=== PATIENT | female | born 1965 | race African-American/Black ===

== ENCOUNTER 2023-09-25 11:36 | Outpatient (AMB) | payer OTHER, SELFPAY ==
--- NOTE | 2023-09-25 11:37 | MHC.OFFVIS ---
Intake Vital Signs 09/25/23 11:53 BP 122/80 Blood Pressure Location Rt brachial Position Sitting Pulse 80 Pulse Source Pulse Oximeter Pulse Oximetry (%) 98 Intake [facility] Allergies acetaminophen [From Tylenol] Allergy (Unknown, Verified 09/25/23 11:57) Unknown HPI [facility] HPI Details She is here for HIV care. She is here with her daughter Marianne who is an RN at [employer] and is her health care proxy. She was living in [place] and moved here two weeks ago She has depression,anxiety and some memory loss after hypoxia when she was hypoxic,ventilated. She was diagnosed 31 years ago with HIV in 1991. She has been on Tivicay and Descovy in past but has fallen off medication at this time and has not taken any for three years. She has asthma and had CVA. She doesnt smoke,use alcohol or use drugs. She has had some vaginal lesions in past and used Valtrex 1 g daily for prevention. She has some seborrheic skin on face. [facility] Medical History Cough HIV (human immunodeficiency virus infection) Review of Systems Const All systems reviewed & are unremarkable except as noted in HPI and below Physical Exam Vital Signs: Last Vital Signs Pulse 80 09/25/23 11:53 BP 122/80 09/25/23 11:53 Pulse Ox 98 09/25/23 11:53 Const General: cooperative HEENT Other: some facial seborrhea Face and sinus: Yes normal facial exam Mouth: Normal oral and palatal mucosa present Teeth and gingiva: dentition normal Eyes General: appearance normal, both eyes and all related structures Pupils: Equal, round and reactive pupils present Resp Effort & Inspection: normal respiratory effort Cardio Rate: regular rate Rhythm: regular rhythm GI Palpation (GI): Soft to palpation and nontender General: Yes no CVA tenderness Back/Spine/Pelvis Back: no CVA tenderness Skin General skin exam: no rashes or lesions noted Neuro General: moves all extremities Cranial nerves: Yes Equal, round and reactive pupils present Extrem General: Yes normal to inspection Psych Appearance: grossly normal Assessment & Plan Assessment & Plan (1) HIV (human immunodeficiency virus infection): Comment: She has not been on medication for some time. She has some seborrhea and has been on prophylactic medication for HSV Code(s): B20 - Human immunodeficiency virus [HIV] disease Plan: Check CD4 count and viral load. PJP prophylaxis if under 200. Ketoconazole cream for face. Valtrex 1 g po daily preventive HSV. Return in one months. Follow up PCP colonoscopy and [facility] mammogram and Pap. COVID,flu and pneumonia vaccine if not received. Orders: Orders Liver Panel 09/25/23 B20 - Human immunodeficiency virus [HIV] disease Hepatitis C Viral Load 09/25/23 B20 - Human immunodeficiency virus [HIV] disease Syphilis Screen 09/25/23 B20 - Human immunodeficiency virus [HIV] disease Hepatitis B Core Antibody 09/25/23 B20 - Human immunodeficiency virus [HIV] disease Hepatitis B Surface Antibody 09/25/23 B20 - Human immunodeficiency virus [HIV] disease Cryptococcal Ag Serum 09/25/23 B20 - Human immunodeficiency virus [HIV] disease XR chest 2V 09/25/23 R05.9 - Cough, unspecified Complete Blood Count Auto Diff 09/25/23 B20 - Human immunodeficiency virus [HIV] disease Basic Metabolic Panel 09/25/23 B20 - Human immunodeficiency virus [HIV] disease Hepatitis C Antibody 09/25/23 B20 - Human immunodeficiency virus [HIV] disease HIV-1 RNA QN PCR Expanded 09/25/23 B20 - Human immunodeficiency virus [HIV] disease Lymphocyte Subset Panel 3 09/25/23 B20 - Human immunodeficiency virus [HIV] disease T Spot TB 09/25/23 B20 - Human immunodeficiency virus [HIV] disease Hepatitis B Surface Antigen 09/25/23 B20 - Human immunodeficiency virus [HIV] disease Hepatitis A IgG 09/25/23 B20 - Human immunodeficiency virus [HIV] disease Legbjpj-1-Pzkoqfqir Dehydrogen 09/25/23 B20 - Human immunodeficiency virus [HIV] disease HIV Genotype 09/25/23 B20 - Human immunodeficiency virus [HIV] disease HIV-1 Integrase Genotype 09/25/23 B20 - Human immunodeficiency virus [HIV] disease Medications: New valacyclovir (Valtrex) 1,000 mg PO DAILY 90 tabs 11RF 90 days dolutegravir (Tivicay) 50 mg PO DAILY 90 tabs 1RF 90 days ketoconazole 2% 1 appl topical DAILY 30 grams 3RF emtricitabine-tenofovir alafen 200-25 mg (Descovy) 1 tab PO DAILY 90 tabs 1RF 90 days Coding Level of Care Code New Pt Level 4 (82163) Diagnoses HIV (human immunodeficiency virus infection) B20
[2023-09-25 11:53] VITALS: BP 122/80; PULSE 80; O2SAT 98
== END 2023-09-25 13:05 | disposition home or self-care (01) ==
LOC: HO.HID 11:36
PROVIDERS: PCP Internal Medicine; Visit Provider Internal Medicine
DX: B20 Human immunodeficiency virus [HIV] disease (principal)
CPT/HCPCS: 99204

== ENCOUNTER 2023-09-25 11:36 | Outpatient (REF) | payer OTHER, SELFPAY ==
--- NOTE | ~2023-09-25 | XR_ITS ---
EXAMINATION: XR CHEST CLINICAL INFORMATION: Unspecified cough COMPARISON: None available. TECHNIQUE: 2 views of the chest were obtained. FINDINGS: Lung volumes are low. There is no gross pneumothorax. Heart size within normal limits. Asymmetric elevation of the left lung base with prominent air-filled subjacent loops of bowel. No pleural effusion. Mild degenerative changes in the thoracic spine. Dextroscoliosis of the thoracolumbar spine. Mild bibasilar linear streaky opacities may represent subsegmental atelectasis/scar versus inflammatory/infectious process. XR/XR chest 2V IMPRESSION: 1. Mild bibasilar linear streaky opacities may represent subsegmental atelectasis/scar versus inflammatory/infectious process. Recommend follow-up imaging in 4-6 weeks to confirm resolution and exclude underlying pathology. 2. Asymmetric elevation of the left lung base with prominent air-filled subjacent loops of bowel.
[2023-09-25 13:28] LABS: Basophils Percent Auto 0.4 % (0-2); Eosinophils Absolute Auto 0.1 X10*3/uL (0.0-0.4); Imm Gran Abs Auto 0.01 X10*3/uL (0.00-0.03); Imm Gran Pct Auto 0.2 % (0.0-0.4); Lymphocytes Absolute Auto 2.5 X10*3/uL (1.2-4.9); Monocytes Absolute Auto 0.4 X10*3/uL (0.1-1.2); Neutrophils Absolute Auto 2.7 x10*3/uL (2.0-8.3)
[2023-09-25 13:29] LABS: White Blood Count 5.6 X10*3/uL (4.8-10.8)
[2023-09-25 14:00] LABS: Eosinophils Percent Auto 1.2 % (0-4); Hematocrit 39.4 % (37.0-47.0); Hemoglobin 13.5 g/dl (12.0-16.0); Lymphocytes Percent Auto 44.3 % (20-40); Mean Corpuscular HGB Conc 34.3 g/dl (31.0-35.0); Mean Corpuscular Hemoglobin 31.5 pg (27.0-33.0); Mean Corpuscular Volume 92.1 fL (80.0-98.0); Monocytes Percent Auto 6.4 % (2-11); Neutrophils Percent Auto 47.5 % (45-73); Platelet Count 311 X10*3/uL (160-400); Red Blood Count 4.28 X10*6/uL (4.20-5.50); Red Cell Distribution Width 13.5 % (11.0-16.0)
[2023-09-28 10:43] LABS: Absolute CD3 Count 1457 cells/uL (840-3060); Absolute CD4 Count 353 cells/uL (490-1740); Absolute CD8 Count 1123 cells/uL (180-1170); Absolute Lymphocytes 2056 cells/uL (850-3900); CD4 CD8 Ratio 0.31 (0.86-5.00); Percent CD3 Cells 71 % (57-85); Percent CD4 Cells 17 % (30-61); Percent CD8 Cells 55 % (12-42)
[2023-09-29 14:44] LABS: HCV Log PCR <1.18 NOT DETECTED Log IU/mL (NOT DETECTED); HepC Viral Load <15 NOT DETECTED IU/mL (NOT DETECTED)
[2023-09-30 18:49] LABS: HIV RNA PCR Qn Copies <20 Copies/mL; HIV RNA PCR Qn Log Copies <1.30 Log cps/mL
== END 2023-09-25 11:37 | disposition home or self-care (01) ==
LOC: HO.LAB 11:36
PROVIDERS: PCP Internal Medicine; Visit Provider Internal Medicine
DX: B20 Human immunodeficiency virus [HIV] disease (principal); R05.9 Cough, unspecified
CPT/HCPCS: 36415; 71046; 80048; 80076; 82955; 85025; 86359; 86360; 86403; 86481; 86704; 86706; 86708; 86780; 86803; 87340; 87522; 87536; 87900; 87901; 99202

== ENCOUNTER 2023-10-28 14:35 | Outpatient (AMB) | payer OTHER, SELFPAY ==
--- NOTE | 2023-10-28 15:03 | A.OFFVIS_ITS ---
Intake Vital Signs 10/28/23 15:16 BP 110/80 Blood Pressure Location Lt brachial Position Sitting Pulse 98 Pulse Source Pulse Oximeter Pulse Oximetry (%) 98 Oxygen Delivery Method Room Air Intake Visit Reasons: follow up,lab Allergies acetaminophen [From Tylenol] Allergy (Unknown, Verified 10/28/23 15:16) Unknown HPI follow up,lab HPI Details She has CD4 count 353 and undetectable October 07. She feels well COUNT INCLUDES THE [facility] Medical History Cough HIV (human immunodeficiency virus infection) Review of Systems Const All systems reviewed & are unremarkable except as noted in HPI and below Physical Exam Vital Signs: Last Vital Signs Pulse 98 10/28/23 15:16 BP 110/80 10/28/23 15:16 Pulse Ox 98 10/28/23 15:16 Oxygen Delivery Method Room Air 10/28/23 15:16 Const General: cooperative Orientation/consciousness: patient oriented x3 HEENT Head: Yes normal to inspection Mouth: Normal oral and palatal mucosa present Eyes General: appearance normal, both eyes and all related structures Pupils: Equal, round and reactive pupils present Resp Effort & Inspection: normal respiratory effort Cardio Rate: regular rate Rhythm: regular rhythm GI Palpation (GI): Soft to palpation and nontender General: Yes no CVA tenderness Back/Spine/Pelvis Back: no CVA tenderness Skin General skin exam: no rashes or lesions noted Neuro General: patient oriented x3 Cranial nerves: Yes CN's II-XII intact bilaterally and Yes Equal, round and reactive pupils present Extrem General: Yes normal to inspection Psych Appearance: grossly normal Assessment & Plan Assessment & Plan (1) HIV (human immunodeficiency virus infection): Comment: Her skin looks free from seborrhea. She has excellent suppression with viral load undetectable and CD4 count good. Code(s): B20 - Human immunodeficiency virus [HIV] disease Plan: Continue Tivicay and Truvada See in six months and labs put in for CD4 count and viral load then. Orders: Orders Lymphocyte Subset Panel 3 5 Months B20 - Human immunodeficiency virus [HIV] disease HIV-1 RNA QN PCR Expanded 5 Months B20 - Human immunodeficiency virus [HIV] disease Coding Level of Care Code Est Pt Level 3 (52102) Diagnoses HIV (human immunodeficiency virus infection) B20
[2023-10-28 15:16] VITALS: BP 110/80; PULSE 98; O2SAT 98
== END 2023-10-28 15:30 | disposition home or self-care (01) ==
LOC: HO.HID 14:35
PROVIDERS: PCP Internal Medicine; Visit Provider Internal Medicine
DX: B20 Human immunodeficiency virus [HIV] disease (principal)
CPT/HCPCS: 99213

== ENCOUNTER → 2023-10-28 14:35 | Outpatient (BNVA) | payer OTHER, SELFPAY | PROVIDERS: PCP Internal Medicine; Visit Provider Internal Medicine | DX: B20 Human immunodeficiency virus [HIV] disease (principal) | CPT/HCPCS: 99212 ==

== ENCOUNTER 2024-04-30 13:55 | Outpatient (REF) | payer OTHER, SELFPAY ==
[2024-05-04 06:34] LABS: HIV RNA PCR Qn Copies 17300 copies/mL (NOT DETECTED); HIV RNA PCR Qn Log Copies 4.24 (NOT DETECTED)
[2024-05-04 21:43] LABS: Absolute CD3 Count 1263 cells/uL (840-3060); Absolute CD4 Count 303 cells/uL (490-1740); Absolute CD8 Count 921 cells/uL (180-1170); Absolute Lymphocytes 1831 cells/uL (850-3900); CD4 CD8 Ratio 0.33 (0.86-5.00); Percent CD3 Cells 69 % (57-85); Percent CD4 Cells 17 % (30-61); Percent CD8 Cells 50 % (12-42)
== END 2024-04-30 13:56 | disposition home or self-care (01) ==
LOC: HO.HMGCLDS 13:55
PROVIDERS: Visit Provider Internal Medicine
DX: B20 Human immunodeficiency virus [HIV] disease (principal)
CPT/HCPCS: 36415; 86359; 86360; 87536

== ENCOUNTER 2024-06-29 14:02 | Outpatient (AMB) | payer OTHER, SELFPAY ==
[2024-06-29 15:30] VITALS: PULSE 101; TEMP 37.3; O2SAT 95
--- NOTE | 2024-06-29 15:30 | MHC.OFFVIS ---
Vital Signs 06/29/24 15:30 Pulse 101 H Pulse Source Pulse Oximeter Temp 99.2 F Temp Source Oral Pulse Oximetry (%) 95 Intake Visit Reasons: hiv lab follow up Allergies acetaminophen [From Tylenol] Allergy (Unknown, Verified 06/29/24 15:31) Unknown HPI HPI hiv lab follow up: Details: She comes in with her daughters boyfrienkofi, Perry. She had labs done shows viral load of 17,300 and viral load of 303 on April 30. Last time Ellen was picked up was September 2023. They want to get care in [place] at [facility]. She has significant weakness and is in wheelchair. [facility] Medical History Cough HIV (human immunodeficiency virus infection) Review of Systems Const All systems reviewed & are unremarkable except as noted in HPI and below Physical Exam Vital Signs: Last Vital Signs Temp 99.2 F 06/29/24 15:30 Pulse 101 H 06/29/24 15:30 Pulse Ox 95 06/29/24 15:30 Const General: cooperative Orientation/consciousness: patient oriented x3 HEENT Head: Yes normal to inspection Mouth: Normal oral and palatal mucosa present Eyes General: appearance normal, both eyes and all related structures Pupils: Equal, round and reactive pupils present Resp Effort & Inspection: normal respiratory effort Cardio Rate: regular rate Rhythm: regular rhythm GI Palpation (GI): Soft to palpation and nontender General: Yes no CVA tenderness Back/Spine/Pelvis Back: no CVA tenderness Skin General skin exam: no rashes or lesions noted Neuro General: patient oriented x3 Cranial nerves: Yes CN's II-XII intact bilaterally and Yes Equal, round and reactive pupils present Extrem General: Yes normal to inspection Psych Appearance: grossly normal Assessment & Plan Assessment & Plan (1) HIV (human immunodeficiency virus infection): Comment: Her skin looks free from seborrhea. She has excellent suppression with viral load undetectable and CD4 count good. Code(s): B20 - Human immunodeficiency virus [HIV] disease Category: Medical Plan She has not been taking her meds regularly. She needs support such as [facility] with case management. Daughter reports through boyfriend they would get care at [facility]. I did give one month Biktarvy hopefully better adherence than two pill a day she had been used to. No further appointments here. Medications: New bszeuptoa-uunbpkzv-jhspsrj ala 50-200-25 mg 1 tab PO DAILY 30 days 30 tabs 2RF xlefdzykd-sgoagzhg-plggilb ala 50-200-25 mg (Biktarvy) 1 tab PO DAILY 30 days 30 tabs 2RF Discontinued dolutegravir Discontinued Reason: Doctor's Order 50 mg PO DAILY 90 days 90 tabs 1RF emtricitabine-tenofovir alafen 200-25 mg Discontinued Reason: Doctor's Order 1 tab PO DAILY 90 days 90 tabs 1RF Coding Level of Care Code Est Pt Level 3 (67063) Diagnoses HIV (human immunodeficiency virus infection) B20
== END 2024-06-29 14:32 | disposition home or self-care (01) ==
LOC: HO.HID 14:02
PROVIDERS: PCP Internal Medicine; Visit Provider Internal Medicine
DX: B20 Human immunodeficiency virus [HIV] disease (principal)
CPT/HCPCS: 99213

== ENCOUNTER → 2024-06-29 14:02 | Outpatient (BNVA) | payer OTHER, SELFPAY | PROVIDERS: PCP Internal Medicine; Visit Provider Internal Medicine | DX: B20 Human immunodeficiency virus [HIV] disease (principal); Z91.148 Patient's other noncompliance with medication regimen for other reason | CPT/HCPCS: 99212 ==

== ENCOUNTER 2024-09-10 07:39 | Outpatient (REF) | payer OTHER, SELFPAY ==
[2024-09-13 02:39] LABS: HIV RNA PCR Qn Copies 93 copies/mL (NOT DETECTED); HIV RNA PCR Qn Log Copies 1.97 (NOT DETECTED)
[2024-09-14 13:43] LABS: Absolute CD3 Count 1011 cells/uL (840-3060); Absolute CD4 Count 271 cells/uL (490-1740); Absolute CD8 Count 737 cells/uL (180-1170); Absolute Lymphocytes 1441 cells/uL (850-3900); CD4 CD8 Ratio 0.37 (0.86-5.00); Percent CD3 Cells 70 % (57-85); Percent CD4 Cells 19 % (30-61); Percent CD8 Cells 51 % (12-42)
== END 2024-09-10 07:40 | disposition home or self-care (01) ==
LOC: HO.LAB 07:39
PROVIDERS: PCP Internal Medicine; Visit Provider Internal Medicine
DX: B20 Human immunodeficiency virus [HIV] disease (principal)
CPT/HCPCS: 36415; 86359; 86360; 87536

== ENCOUNTER 2024-10-03 15:33 | Outpatient (AMB) | payer OTHER, SELFPAY ==
--- NOTE | 2024-10-03 15:53 | MHC.OFFVIS ---
Intake Visit Reasons: HIV follow up Allergies acetaminophen [From Tylenol] Allergy (Unknown, Verified 06/29/24 15:31) Unknown HPI Comments Details: She is here with her daughter and granddaughter. She has no complaints. She now has viral load only 93 and CD4 count of 271 on Biktarvy. [facility] Medical History Cough HIV (human immunodeficiency virus infection) Review of Systems Const All systems reviewed & are unremarkable except as noted in HPI and below Physical Exam Const General: cooperative Orientation/consciousness: patient oriented x3 HEENT Head: Yes normal to inspection Mouth: Normal oral and palatal mucosa present Eyes General: appearance normal, both eyes and all related structures Pupils: Equal, round and reactive pupils present Resp Effort & Inspection: normal respiratory effort Cardio Rate: regular rate Rhythm: regular rhythm GI Palpation (GI): Soft to palpation and nontender General: Yes no CVA tenderness Back/Spine/Pelvis Back: no CVA tenderness Skin General skin exam: no rashes or lesions noted Neuro General: patient oriented x3 Cranial nerves: Yes CN's II-XII intact bilaterally and Yes Equal, round and reactive pupils present Extrem General: Yes normal to inspection Psych Appearance: grossly normal Assessment & Plan Assessment & Plan (1) HIV (human immunodeficiency virus infection): Comment: Her skin looks free from seborrhea. She has excellent suppression with viral load undetectable and CD4 count good. Code(s): B20 - Human immunodeficiency virus [HIV] disease Category: Medical Plan: Continue Biktarvy. See in six months with labs before. Orders: Orders HIV-1 RNA QN PCR Expanded 5 Months B20 - Human immunodeficiency virus [HIV] disease Lymphocyte Subset Panel 3 5 Months B20 - Human immunodeficiency virus [HIV] disease Syphilis Screen 5 Months B20 - Human immunodeficiency virus [HIV] disease Medications: Refilled nuvvhfxdm-atjyvsfk-dsxqemr ala 50-200-25 mg (Biktarvy) 1 tab PO DAILY 30 tabs 5RF 30 days ketoconazole 2% 1 appl topical DAILY 30 grams 5RF valacyclovir (Valtrex) 1,000 mg PO DAILY 90 tabs 3RF 90 days Coding Level of Care Code Est Pt Level 4 (64119) Diagnoses HIV (human immunodeficiency virus infection) B20
== END 2024-10-03 16:29 | disposition home or self-care (01) ==
PROVIDERS: PCP Internal Medicine; Visit Provider Internal Medicine
DX: B20 Human immunodeficiency virus [HIV] disease (principal)
CPT/HCPCS: 99214

== ENCOUNTER → 2024-10-03 15:33 | Outpatient (BNVA) | payer OTHER, SELFPAY | PROVIDERS: PCP Internal Medicine; Visit Provider Internal Medicine | DX: B20 Human immunodeficiency virus [HIV] disease (principal) | CPT/HCPCS: 99212 ==

== ENCOUNTER 2025-03-29 14:10 | Outpatient (REF) | payer OTHER, SELFPAY ==
--- OUTSIDE RECORDS SUMMARY | 2025-03-29 14:49 | XMS_ITS | Clinical Summary ---
Author Organization [facility] Address [address] [place] [address] Phone Care Team Providers Care Hog Ringer Name Role Phone Juan Knox MD Primary Care Provider [phone] Allergies Active Allergy Reactions Criticality Noted Date Comments Amoxicillin Anaphylaxis High 10/21/2024 Aspirin Anaphylaxis High 10/21/2024 Codeine Anaphylaxis High 10/21/2024 Penicillanic Sulfone Bl Beta-Lactamase Inhibitors Anaphylaxis High 10/21/2024 Tylenol Allergy Cmp Mult-Sx Nt 09/22/2023 Tylenol Allergy Complete Medications fluticasone propion-salmete roL (ADVAIR HFA) 230-21 mcg/actuation inhaler Inhale 2 Puffs into the lungs 2 times daily. 4 04/21/20 25 Active albuterol HFA (PROAIR HFA ; PROVENTIL HFA ; VENTOLIN HFA) 90 mcg/actuation inhaler Inhale 2 Puffs into the lungs every 6 hours as needed for Cough or Wheezing. 4 04/21/20 25 Active tiotropium (SPIRIVA) 18 mcg per inhalation capsule Inhale 1 Capsule into the lungs daily. Inhale the contents of one capsule through the Spiriva device every AM 4 04/21/20 25 Active albuterol 2.5 mg /3 mL (0.083 %) nebulizer solution Take 1 Vial by nebulization every 6 hours as needed for Wheezing, Shortness of Breath or Cough. 4 04/21/20 25 Active valACYclovir (VALTREX) 1 gram tablet Take 1 Tablet by mouth daily. 4 Active arginine/glutam ine/calcium bmb (RANDY ORAL) NUTRITIONAL SUPPLEMENTS (RANDY NUTRIVIGOR) POWD PACK: Take 1 Packet by mouth daily. - Oral 4 Active ketoconazole (NIZORAL) 2 % cream Apply topically 2 times daily. Active senna (SENOKOT) 8.6 mg tablet Take 1 Tablet by mouth daily as needed (Constipation) for up to 30 days. 4 Active polyethylene glycol (Miralax) 17 gram/dose oral powder Take 17 g by mouth daily for 30 days. 4 Active nutritional drink (Ensure High Protein) liquid Take 1 Can by mouth 2 times daily for 30 days. 4 Active foam bandage (Optifoam) 4 X 4 bandage 1 Each by Does not apply route every other day. 4 Active foam bandage (Optifoam) 6 X 6 bandage 1 Patch by Does not apply route 3 times daily. Active atorvastatin (LIPITOR) 20 mg tablet TAKE 1 TABLET BY MOUTH EVERY DAY 90 tablet 3 4 Active Biktarvy 50-200-25 mg per tablet Take 1 tablet by mouth 1 (one) time each day. 4 Active Active Problems Problem Noted Date Diagnosed Date HIV (human immunodeficiency virus infection) ([facility] V24, [facility] V28) 02/23/2024 History of cerebrovascular a ccident (CVA) with residual deficit 02/23/2024 Overview (06/20/2024): poor memory COPD (chronic obstructive pu lmonary disease) ([facility] V24, [facility] V28) 02/23/2024 Prediabetes 02/23/2024 Encounters Date Type Department Care Team Description 02/03/2025 11:00 AM EDT Office Visit Internal Medicine - [address] [place] [address] Juan Knox MD Adult general medical examination (Primary Dx); Asymptomatic HIV infection, with no history of HIV-related illness ([facility] V24, [facility] V28); Other emphysema ([facility] V24, [facility] V28); Post menopausal syndrome; Memory loss; Conductive hearing loss, bilateral from Last 3 Months Surgical History Surgery Date Site/Laterality Comments ABDOMINAL SURGERY PROCEDURE: HISTORICAL ABDOMINAL SURGERY; COMMENT: abscessed wound -2006 Medical History Medical History Date Comments HIV (human immunodeficiency virus infection) ([facility] V24, [facility] V28) DX:HIV (human im munodeficiency virus infection) ([facility]) History of crack cocaine use DX: History of crack cocaine use; COMMENT: quit February 2023 COPD (chronic obstructive pu lmonary disease) ([facility] V24, [facility] V28) DX:COPD (chronic o bstructive pulmonary disease) ([facility]) Prediabetes DX:Prediabetes History of cerebrovascular a ccident (CVA) with residual deficit DX:History of cerebrovascu lar accident (CVA) with residual deficit; COMMENT: poor memory Family History Relation Name Status Comments Father Mother Social History Tobacco Use Types Packs/Day Years Used Date Smoking Tobacco: Former Cigarettes 3 42 1 982 - 4 Smokeless Tobacco: Never Tobacco Cessation:Counseling Given: Not Answered Alcohol Use Standard Drinks/Week Comments Yes 0 (1 standard drink = 0.6 oz pur e alcohol) Comments Unknown Sex and Gender Information Value Date Recorded Sex Assigned at Female 10/04/2024 3:45 PM EST Legal Sex Female 8:13 PM EST Gender Identity Female 10/04/2024 3:45 PM EST Sexual Orientation Straight 10/04/2024 3: 45 PM EST Obstetrics History Last Filed Vital Signs Vital Sign Reading Time Taken Comments Blood Pressure 128/88 02/03/2025 11:05 AM EDT Pulse 87 02/03/2025 11:05 AM EDT Temperature 35.8 C (96.5 F) 02/03/2025 11:05 AM EDT Respiratory Rate 19 10/21/2024 8:18 AM EST Oxygen Saturation 96% 02/03/2025 11:05 AM EDT Inhaled Oxygen Concentration - - Weight 82.8 kg (182 lb 9.6 oz) 02/03/2025 11:05 AM EDT Height 162.6 cm (5' 4 ) 02/03/2025 11:05 AM EDT Body Mass Index 31.34 02/03/2025 11:05 AM EDT Plan of Treatment Upcoming Encounters Date Type Department Care Team (Late st Contact Info) Description 04/28/2025 9:30 AM EDT Appointment [facility] Density [address] [place] [phone] 04/28/2025 10:15 AM EDT Appointment [facility] [address] [place] [phone] 05/05/2025 2:15 PM EDT Office Visit Pulmonolgy - [place] [facility] [address] [place] [phone] Liz Last MD [address] [address] Health Maintenance Due Date Last Done Comments Breast Cancer Screening 1967 Meningococcal ACWY Vaccine ( 1 - Risk 2-dose series) 1969 COVID-19 Vaccine (#1) 1972 MMR Vaccines (1 of 2 - Risk 2-dose series) 1985 DTaP,Tdap,and Td Vaccines (1 - Tdap) 1986 Hepatitis A Vaccines (1 of 2 - Risk 2-dose series) 1986 Hepatitis B Vaccines (1 of 3 - 19+ 3-dose series) 1986 Pneumococcal Vaccine: 50+ Years (1 of 2 - PCV) 1986 Zoster Vaccines (1 of 2) 1986 Cervical Cancer Screening: P ap Smear 1988 Colorectal Cancer Screening: Colonoscopy 02/19/2024 Social Influencers of Health Screening 02/19/2024 Depression Screening 09/22/2024 09/22/2023 Influenza Vaccine (#1) 2025 Lung Cancer Screening (Low Dose CT) 10/04/2025 10/04/2024 Cholesterol Screening (Lipid Panel) 09/09/2029 09/09/2024, 02/26/2024, 02/26/2024 Hepatitis C Screening Completed 09/09/2024 HIB Vaccines Aged Out No longer eligi ble based on patient's age to complete this topic HPV Vaccines Aged Out No longer eligi ble based on patient's age to complete this topic IPV Vaccines Aged Out No longer eligi ble based on patient's age to complete this topic Meningococcal B Vaccine Aged Out No l onger eligible based on patient's age to complete this topic RSV Immunization Patients Under 20 months Aged Out No longer eligible b ased on patient's age to complete this topic Varicella Vaccines Aged Out No longer eligible based on patient's age to complete this topic Procedures Procedure Name Priority Date/Time Associated Diagnosis Comments CT LUNG SCREENING Routine 10/04/2024 3:5 2 PM EST Encounter for screening for lung cancer History of tobacco use HEPATITIS C ANTIBODY Routine 09/09/2024 8:55 AM EST HIV infection, unspecified symptom status (CMS/HCC V24, CMS/HCC V28) Prediabetes History of cerebrovascular accident (CVA) with residual deficit COPD (chronic obstructive pulmonary disease) (CMS/HCC V24, CMS/HCC V28) LIPID PANEL WITH REFLEX TO DIRECT LDL Routine 09/09/2024 8:55 AM EST Mixed hyperlipidemia HM DEPRESSION SCREENING Routine 09/22/2023 from Last 3 Months or Most Recently Relevant to Health Maintenance Results * CT Lung Screening (10/04/2024 3:52 PM EST) Anatomical Region Laterality Modality Chest Computed Tomogra phy 10/12/2024 12:5 8 PM EST Impressions 10/12/2024 1:05 PM EST Impression: No suspicious pulmonary nodule. Lung-RADS Category: Lung-RADS 1: No nodules or definitely benign nodules. Continue annual screening with Low Dose Chest CT in 12 months. Telerad JOHNNIE ([id number]) -------- FINAL REPORT -------- Dictated By: Mae Fields Dictated Date: 10/12/2024 12:58 ET Assigned Physician: Mae Fields Reviewed and Electronically Signed By: Mae Fields Signed Date: 10/12/2024 13:05 ET Workstation ID: [id number] Transcribed By: Self Edit Transcribed Date: 10/12/2024 12:58 ET Narrative 10/12/2024 1:05 PM EST History: 58 year-old 126 pack-year former smoker, asymptomatic, for lung cancer screening. Quit smoking one year ago. Comparison: No comparison imaging at this institution. Technique: Helical volumetric imaging of the thorax was performed, using low- dose technique, without IV contrast. DLP: 141.71 mGy/cm CTDIvol: 4.83 mGy [employer] VCT Iterative reconstruction technique Findings: Lungs and Airways: The trachea and central bronchial tree are patent. There are geographic areas of differential lung attenuation in both lower lobes, possibly air trapping. Minimal centrilobular and paraseptal emphysema is noted. Thin curvilinear opacity in the inferior lingula is consistent with subsegmental atelectasis. There is no suspicious pulmonary nodule. Pleura: No pleural or pericardial effusions are seen. Base of neck, mediastinum and heart: Mild multichamber cardiomegaly is noted. The included portions of the thyroid gland show no suspicious nodule. No thoracic lymphadenopathy is seen. Soft tissues: The overlying soft tissues are unremarkable. Abdomen: This study was performed without contrast and with lower than standard dose. These factors reduce the sensitivity for detection of small lesions in the upper abdomen. No significant abnormality is seen. Procedure Note Mae Fields MD - 10/12/2024 History: 58 year-old 126 pack-year former smoker, asymptomatic, for lungcancer screening. Quit smoking one year ago. Comparison: No comparison imaging at this institution. Technique: Helical volumetric imaging of the thorax was performed, usinglow-dose technique, without IV contrast. DLP: 141.71 mGy/cm CTDIvol: 4.83 mGy [employer]ed VCT Iterative reconstruction technique Findings: Lungs and Airways: The trachea and central bronchial tree are patent.There are geographic areas of differential lung attenuation in both lowerlobes, possibly air trapping. Minimal centrilobular and paraseptalemphysema is noted. Thin curvilinear opacity in the inferior lingula isconsistent with subsegmental atelectasis. There is no suspicious pulmonary nodule. Pleura: No pleural or pericardial effusions are seen. Base of neck, mediastinum and heart: Mild multichamber cardiomegaly isnoted. The included portions of the thyroid gland show no suspiciousnodule. No thoracic lymphadenopathy is seen. Soft tissues: The overlying soft tissues are unremarkable. Abdomen: This study was performed without contrast and with lower thanstandard dose. These factors reduce the sensitivity for detection of smalllesions in the upper abdomen. No significant abnormality is seen. IMPRESSION: Impression: No suspicious pulmonary nodule. Lung-RADS Category: Lung-RADS 1: No nodules or definitely benign nodules.Continue annual screening with Low Dose Chest CT in 12 months. Telerad PA ([id number]) -------- FINAL REPORT -------- Dictated By: Mae Fields Dictated Date: 10/12/2024 12:58 ET Assigned Physician: Mae Fields Reviewed and Electronically Signed By: Mae Fields Signed Date: 10/12/2024 13:05 ET Workstation ID: [id number] Transcribed By: Self Edit Transcribed Date: 10/12/2024 12:58 ET Shu Hernandez MD IMG CT PROCEDURES Final Result * Hepatitis C antibody (09/09/2024 8:55 AM EST) [facility] Hepatitis C Antibody Negative Negative LAB CHEMISTRY METHOD 09/09/2024 11:28 AM EST [facility] Blood Venous blood specimen / Unknown Venipuncture / Unknown 09/09/2024 8:55 AM EST 09/09/2024 8:55 AM EST Aimee Haskins MD LAB BLOOD ORDERABLES Final Resul t [facility] [address] [place] [address], [place] [phone] * (ABNORMAL) Lipid panel with reflex to direct LDL (09/09/2024 8:55 AM EST) Pathologist [facility] Cholesterol 170 0 - 200 mg/dL LAB CHEMISTRY METHOD 09/09/2024 10:43 AM EST [facility] Triglycerides 105 0 - 150 mg/dL LAB CHEMISTRY METHOD 09/09/2024 10:43 AM EST [facility] HDL 45 >=40 mg/dL LAB CHEMISTRY METHOD 09/09/2024 10:43 AM [facility] LDL Calculated 104(H) 0 - 100 mg/dL LAB CHEMISTRY METHOD 09/09/2024 10:43 AM [facility] VLDL Cholesterol Perry 21 mg/dL LAB CHEMISTRY METHOD 09/09/2024 10:43 AM EST [facility] Non HDL Chol. (LDL+VLDL) 125 <145 mg/dL LAB CHEMISTRY METHOD 09/09/2024 10:43 AM [facility] Chol/HDL Ratio 3.8 0.0 - 4.4 LAB CHEMISTRY METHOD 09/09/2024 10:43 AM [facility] Blood Venous blood specimen / Unknown Venipuncture / Unknown 09/09/2024 8:55 AM EST 09/09/2024 8:55 AM EST Sheryl BLAIR LAB BLOOD ORDERABLES Fin al Result [facility] [address] [place] [address], * Depression Screening (09/22/2023) [facility] Depression Screening Abstracted Historical Provider HEALTH MAINTENANCE Final Result from Last 3 Months or Most Recently Relevant to Health Maintenance Insurance [facility] [employer] Care Teams Hog Ringer Relationship Specialty Start Date End Date Juan Knox MD 175 [facility] [address] [place] [address] PCP - General 09/02/23
[2025-03-30 06:29] LABS: Syphilis Screen Nonreactive (Nonreactive)
[2025-03-30 15:19] LABS: HIV RNA PCR Qn Copies 62 copies/mL (NOT DETECTED); HIV RNA PCR Qn Log Copies 1.79 (NOT DETECTED)
[2025-04-04 14:29] LABS: Absolute CD3 Count 1675 cells/uL (840-3060); Absolute CD8 Count 1209 cells/uL (180-1170); Percent CD3 Cells 76 % (57-85); Percent CD8 Cells 55 % (12-42)
== END 2025-03-29 14:11 | disposition home or self-care (01) ==
LOC: HO.LAB 14:10
PROVIDERS: Visit Provider Internal Medicine
DX: B20 Human immunodeficiency virus [HIV] disease (principal); Z11.3 Encounter for screening for infections with a predominantly sexual mode of transmission
CPT/HCPCS: 36415; 86359; 86360; 86780; 87536

== ENCOUNTER 2025-04-03 15:20 | Outpatient (AMB) | payer OTHER, SELFPAY ==
[2025-04-03 15:25] VITALS: BP 132/72; PULSE 108; O2SAT 94
--- NOTE | 2025-04-03 15:25 | A.OFFVIS_ITS ---
Vital Signs 04/03/25 15:25 Weight 192 lb BP 132/72 Pulse 108 H Pulse Oximetry (%) 94 Intake Visit Reasons: 6 month Allergies acetaminophen (From Tylenol) Allergy (Unknown, Verified 04/03/25 15:27) Unknown HPI Comments Details: She is doing well and taking Biktarvy daily. She has CD4 count of 453 and viral load 62 on 03/29. She has no complaints. [facility] Medical History Cough HIV (human immunodeficiency virus infection) Review of Systems Const All systems reviewed & are unremarkable except as noted in HPI and below Physical Exam Vital Signs: Last Vital Signs Pulse 108 H 04/03/25 15:25 BP 132/72 04/03/25 15:25 Pulse Ox 94 04/03/25 15:25 Const General: cooperative Orientation/consciousness: patient oriented x3 HEENT Head: Yes normal to inspection Mouth: Normal oral and palatal mucosa present Eyes General: appearance normal, both eyes and all related structures Pupils: Equal, round and reactive pupils present Resp Effort & Inspection: normal respiratory effort Cardio Rate: regular rate Rhythm: regular rhythm GI Palpation (GI): Soft to palpation and nontender General: Yes no CVA tenderness Back/Spine/Pelvis Back: no CVA tenderness Skin General skin exam: no rashes or lesions noted Neuro General: patient oriented x3 Cranial nerves: Yes CN's II-XII intact bilaterally and Yes Equal, round and reactive pupils present Extrem General: Yes normal to inspection Psych Appearance: grossly normal Assessment & Plan Assessment & Plan (1) HIV (human immunodeficiency virus infection): Comment: She is doing well,vl 62. Code(s): B20 - Human immunodeficiency virus [HIV] disease Category: Medical Plan: Continue FU with PCP. See in six months. Continue Biktarvy. Time spent counseling patient on medication adherence. Orders: Orders Lymphocyte Subset Panel 3 6 Months B20 - Human immunodeficiency virus [HIV] disease HIV-1 RNA QN PCR Expanded 6 Months B20 - Human immunodeficiency virus [HIV] disease Medications: Changed From norjbaqzr-lxglcnpk-ayojkju ala 50-200-25 mg (Biktarvy) 1 tab PO DAILY 30 days 30 tabs 5RF To xpvrwicoa-jaflufph-uteglzy ala 50-200-25 mg (Biktarvy) 1 tab PO DAILY 90 tabs 1RF 90 days Refilled valacyclovir (Valtrex) 1,000 mg PO DAILY 90 tabs 3RF 90 days ketoconazole 2% 1 appl topical DAILY 30 grams 5RF Coding Level of Care Code Est Pt Level 4 (25949) Diagnoses HIV (human immunodeficiency virus infection) B20
--- OUTSIDE RECORDS SUMMARY | 2025-04-03 16:33 | XMS_ITS | Clinical Summary ---
Author Organization [facility] Address [address] [place] [address] Phone Care Team Providers Care Dye Automation Operator Name Role Phone Juan Knox MD Primary Care Provider [phone] Allergies Active Allergy Reactions Criticality Noted Date [...] Diagnosed Date HIV (human immunodeficiency virus infection) ([facility] V24, [facility] V28) 02/23/2024 History of cerebrovascular a ccident (CVA) with residual deficit 02/23/2024 Overview (06/20/2024): poor memory COPD (chronic obstructive pu lmonary disease) ([facility] V24, [facility] V28) 02/23/2024 Prediabetes 02/23/2024 Encounters Date Type Department Care Team Description 02/03/2025 11:00 AM EDT Office Visit Internal Medicine - [address] [place] [address] Juan Knox MD Adult general medical examination (Primary Dx); Asymptomatic HIV infection, with no history of HIV-related illness ([facility] V24, [facility] V28); Other emphysema ([facility] V24, [facility] V28); Post menopausal syndrome; Memory loss; Conductive hearing loss, bilateral from Last 3 Months Surgical History Surgery Date Site/Laterality Comments ABDOMINAL SURGERY PROCEDURE: HISTORICAL ABDOMINAL SURGERY; COMMENT: abscessed wound -2006 Medical History Medical History Date Comments HIV (human immunodeficiency virus infection) ([facility] V24, [facility] V28) DX:HIV (human im munodeficiency virus infection) ([facility]) History of crack cocaine use DX: History of crack cocaine use; COMMENT: quit February 2023 COPD (chronic obstructive pu lmonary disease) ([facility] V24, [facility] V28) DX:COPD (chronic o bstructive pulmonary disease) ([facility]) Prediabetes DX:Prediabetes History of cerebrovascular a ccident [...] Info) Description 04/28/2025 9:30 AM EDT Appointment [facility] Density [address] [place] [phone] 04/28/2025 10:15 AM EDT Appointment [facility] [address] [place] [phone] 05/05/2025 2:15 PM EDT Office Visit Pulmonolgy - [place] 175 [facility] [address] [place] [phone] Liz Last MD [address] [address] Health Maintenance Due Date Last Done Comments [...] Chest CT in 12 months. Telerad JOHNNIE ([id number]) -------- FINAL REPORT -------- Dictated By: Mae Fields Dictated Date: 10/12/2024 12:58 ET Assigned Physician: Mae Fields Reviewed and Electronically Signed By: Mae Fields Signed Date: 10/12/2024 13:05 ET Workstation ID: [id number] Transcribed By: Self Edit Transcribed Date: 10/12/2024 12:58 ET Narrative 10/12/2024 1:05 PM EST History: 58 year-old 126 pack-year former smoker, asymptomatic, for lung cancer screening. Quit smoking one year ago. Comparison: No comparison imaging at this institution. Technique: Helical volumetric imaging of the thorax was performed, using low- dose technique, without IV contrast. DLP: 141.71 mGy/cm CTDIvol: 4.83 mGy GE [employer] VCT Iterative reconstruction technique Findings: Lungs and [...] contrast. DLP: 141.71 mGy/cm CTDIvol: 4.83 mGy [employer]peed VCT Iterative reconstruction technique Findings: Lungs and [...] Chest CT in 12 months. Telerad PA ([id number]) -------- FINAL REPORT -------- Dictated By: Mae Fields Dictated Date: 10/12/2024 12:58 ET Assigned Physician: Mae Fields Reviewed and Electronically Signed By: Mae Fields Signed Date: 10/12/2024 13:05 ET Workstation ID: [id number] Transcribed By: Self Edit Transcribed Date: 10/12/2024 12:58 ET Shu Hernandez MD IMG CT PROCEDURES Final Result * Hepatitis C antibody (09/09/2024 8:55 AM EST) [facility] Hepatitis C Antibody Negative Negative LAB CHEMISTRY METHOD 09/09/2024 11:28 AM EST [facility] Blood Venous blood specimen / Unknown Venipuncture / Unknown 09/09/2024 8:55 AM EST 09/09/2024 8:55 AM EST Aimee Haskins MD LAB BLOOD ORDERABLES Final Resul t [facility] [address] [place] [address], [place] [phone] * (ABNORMAL) Lipid panel with reflex to direct LDL (09/09/2024 8:55 AM EST) Pathologist [facility] Cholesterol 170 0 - 200 mg/dL LAB CHEMISTRY METHOD 09/09/2024 10:43 AM EST [facility] Triglycerides 105 0 - 150 mg/dL LAB CHEMISTRY METHOD 09/09/2024 10:43 AM EST [facility] HDL 45 >=40 mg/dL LAB CHEMISTRY METHOD 09/09/2024 10:43 AM [facility] LDL Calculated 104(H) 0 - 100 mg/dL LAB CHEMISTRY METHOD 09/09/2024 10:43 AM [facility] VLDL Cholesterol Perry 21 mg/dL LAB CHEMISTRY METHOD 09/09/2024 10:43 AM EST [facility] Non HDL Chol. (LDL+VLDL) 125 <145 mg/dL LAB CHEMISTRY METHOD 09/09/2024 10:43 AM [facility] Chol/HDL Ratio 3.8 0.0 - 4.4 LAB CHEMISTRY METHOD 09/09/2024 10:43 AM [facility] Blood Venous blood specimen / Unknown Venipuncture / Unknown 09/09/2024 8:55 AM EST 09/09/2024 8:55 AM EST Sheryl BLAIR LAB BLOOD ORDERABLES Fin al Result [facility] [address] [place] [address], * Depression Screening (09/22/2023) [facility] Depression Screening Abstracted Historical Provider HEALTH MAINTENANCE Final Result from Last 3 Months or Most Recently Relevant to Health Maintenance Insurance [facility] Care Teams Dye Automation Operator Relationship Specialty Start Date End Date Juan Knox MD 175 [facility] [address] [place] [address] PCP - General 09/02/23
== END 2025-04-03 16:00 | disposition home or self-care (01) ==
LOC: HO.HID 15:20
PROVIDERS: Visit Provider Internal Medicine
DX: B20 Human immunodeficiency virus [HIV] disease (principal)
CPT/HCPCS: 99214

== ENCOUNTER → 2025-04-03 15:20 | Outpatient (BNVA) | payer OTHER, SELFPAY | PROVIDERS: Visit Provider Internal Medicine | DX: B20 Human immunodeficiency virus [HIV] disease (principal) | CPT/HCPCS: 99212 ==